=== PATIENT | female | born 1990 | race Caucasian/White ===

== ENCOUNTER 2025-02-09 22:40 | Outpatient (CLI) | payer OTHER, SELFPAY ==
[2025-02-09 23:22] VITALS: BP 112/59; PULSE 80; RESP 16; TEMP 36.6
--- NOTE | 2025-02-10 00:03 | PC.OBNST ---
NST Note NST Note Start: 02/09/25 23:06 Freq: ONCE Status: Discharge Protocol: Document 02/10/25 00:00 SHADI (Rec: 02/10/25 00:00 KALYANGUY [id number]) NST Note 3 Para (# of births) 1 EDC 01/31/25 Gestational Age In 41 Weeks & 3 Days Weeks & Days Patient Presented Decreased movement with Complaint(s) of Reactive Yes RN Suhas Cole RN Date 02/10/25 Reactive Yes FREDI Albarado RN Date 02/10/25 OB NST charge Yes Complete NST Note Yes via Write Note The provider's electronic signature indicates the NST is reactive/appropriate for gestational age. *Note to provider: If an addendum is required, open the patient's chart and click on the note under the Nurse/Allied Health tab.
== END 2025-02-09 23:48 | disposition home or self-care (01) ==
LOC: OB OUT 23:00 → OB 23:02
PROVIDERS: Visit Provider Midwife
DX: O36.8130 Decreased fetal movements, third trimester, not applicable or unspecified (principal); Z3A.41 41 weeks gestation of pregnancy
CPT/HCPCS: 59025; G0463